=== PATIENT | male | born 1960 | race Asian ===

== ENCOUNTER 2021-03-10 20:05 | Emergency (ER) | payer MEDICAID ==
[~2021-03-10] VITALS: Ht 162.6 cm; Wt 72.6 kg
--- NOTE | 2021-03-10 20:10 | NUR ---
Note kristal in EDM - 03/10/21 at 2221 by JULIAN PRESENTED TO THE ER FOR C/O SPOTTING AND MILD CRAMP SICNE AM. PT TESTED + FOR AT HOME YESTERDAY W. LMP: 01/28/21. AMBULATORY TO BED 16 ER, PLACED ON A MONITOR . VSS. WILL CONT TO MONITOR ,
--- NOTE | 2021-03-10 20:10 | NUR ---
BIB DAUGHTER FOR C/O HIGH BS OF 500 AT HOME . FSBS IN ER 450. PT DENIED ANY PAIN , OR DISCOMFORT . NO EXCESSIVE SWEATING OR THIRST. NO ALOC OR AMS NOTED . AMBULATORY TO BED 16, WAS PLACED ON A MONITOR . VSS. AFEBRILE. NEEDS ATTENDED . DAUGHTER AT BED SIDE. WILL CONT TO MONITOR
[2021-03-10 20:28] LABS: BASOPHILS % (AUTO) 0.7 % (0.0-2.0); HEMATOCRIT 43 % (39-51); HEMOGLOBIN 14.4 g/dL (13.5-17.5); LYMPHOCYTES # (AUTO) 2.5 K/uL (0.8-4.8); LYMPHOCYTES % (AUTO) 38.3 % (20.0-44.0); MEAN CORPUSCULAR HGB CONC 34 g/dl (31.0-36.0); MEAN CORPUSCULAR VOLUME 97 fL (80-96); MONOCYTES # (AUTO) 0.5 K/uL (0.1-1.30); MONOCYTES % (AUTO) 7.7 % (2.0-12.0); NEUTROPHILS # (AUTO) 3.3 K/uL (1.8-8.9); NEUTROPHILS % (AUTO) 50.3 % (43.0-81.0); PLATELET COUNT (AUTO) 306 K/uL (150-450); WHITE BLOOD COUNT (AUTO) 6.5 K/uL (4.3-11.0)
[2021-03-10 20:43] LABS: ALANINE AMINOTRANSFERASE 29 U/L (12-78); ALBUMIN 3.3 g/dL (3.4-5.0); ALKALINE PHOSPHATASE 90 U/L (46-116); ASPARTATE AMINOTRANSFERASE 14 U/L (15-37); BILIRUBIN,DIRECT 0.2 mg/dL (0.0-0.2); BILIRUBIN,TOTAL 0.6 mg/dL (0.2-1.0); CALCIUM, SERUM 8.6 mg/dL (8.5-10.1); CARBON DIOXIDE 23 mmol/L (21-32); CHLORIDE 98 mmol/L (98-107); CREATININE 1.1 mg/dL (0.6-1.3); POTASSIUM 3.9 mmol/L (3.5-5.1); SODIUM SERUM 132 mmol/L (136-145); TOTAL PROTEIN, SERUM 7.2 g/dL (6.4-8.2); UREA NITROGEN, BLOOD 19 mg/dL (7-18)
[2021-03-10 20:44] LABS: GLUCOSE 492 mg/dL (74-106)
[2021-03-10] MEDS ORDERED: INSULIN REGULAR, HUMAN 100 UNIT/ML 10 ML VIAL SQ ONE (21:00)
[2021-03-10] MEDS ORDERED: IV NS 0.9% 1,000 ML BAG IV ONE (21:00)
[2021-03-10] MEDS ORDERED: INSULIN REGULAR, HUMAN 100 UNIT/ML 10 ML VIAL ONE (21:03)
[2021-03-10] MEDS ORDERED: METF-440 PO (21:55)
[2021-03-10] MEDS ORDERED: METFORMIN 500 MG TABLET PO ONE (22:00)
[2021-03-10] MEDS ORDERED: METFORMIN 500 MG TABLET ONE (22:01)
--- NOTE | 2021-03-10 22:16 | NUR ---
PT IS MEDICALLY STABLE FOR D/C PER MD. IV removed. Catheter intact and site benign. Pressure and 4x4 applied to site. No bleeding noted.Patient discharged to home in stable condition. Rx and Written and verbal after care instructions given. Patient verbalizes understanding of instruction.
[2021-03-10 22:18] VITALS: BP 134/78
== END 2021-03-10 22:19 | disposition home or self-care (01) ==
LOC: ER 20:07
DX: E11.65 Type 2 diabetes mellitus with hyperglycemia (principal); I10 Essential (primary) hypertension; J45.909 Unspecified asthma, uncomplicated; Z79.84 Long term (current) use of oral hypoglycemic drugs
CPT/HCPCS: 36415; 80048; 80076; 82962 ×3; 84484; 85025; 96360; 96372; 99283; J1815